=== PATIENT | male | born 1950 | race Caucasian/White ===

== ENCOUNTER 2019-02-11 16:10 | Emergency (ER) | payer SELFPAY ==
[~2019-02-11] VITALS: Ht 167.6 cm; Wt 59.0 kg
[2019-02-11 17:06] VITALS: BP 122/82; PULSE 100; RESP 20; Ht 167.6 cm; Wt 59.0 kg
== END 2019-02-11 18:18 | disposition left against medical advice (07) ==
LOC: E/R 16:10
DX: Z53.21 Procedure and treatment not carried out due to patient leaving prior to being seen by health care provider (principal)